=== PATIENT | male | born 1980 | race Caucasian/White ===

== ENCOUNTER 2021-02-06 21:21 | Emergency (ER) | payer OTHER ==
[2021-02-06] MEDS ORDERED: Famotidine/PF 20 mg/2ml Vial ONE (21:26)
== END 2021-02-07 00:58 | disposition home or self-care (01) ==
LOC: ERS 21:21
DX: T63.441A Toxic effect of venom of bees, accidental (unintentional), initial encounter (principal)
CPT/HCPCS: 96374; S0028